=== PATIENT | female | born 1960 | race Caucasian/White ===

== ENCOUNTER → 2023-06-22 10:14 | Outpatient (REF) | payer OTHER, SELFPAY | LOC: HWRAD 10:14 | PROVIDERS: ATTENDING PHYSICIAN Internal Medicine Critical Care Medicine; FAMILY PHYSICIAN Family Medicine | DX: R91.8 Other nonspecific abnormal finding of lung field (principal) | CPT/HCPCS: 71250 ==

== ENCOUNTER → 2023-12-01 09:08 | Outpatient (REF) | payer OTHER, SELFPAY | LOC: HWWDC 09:08 | PROVIDERS: ATTENDING PHYSICIAN Obstetrics & Gynecology; FAMILY PHYSICIAN Family Medicine | DX: Z12.31 Encounter for screening mammogram for malignant neoplasm of breast (principal) | CPT/HCPCS: 77063; 77067 ==

== ENCOUNTER 2023-12-25 00:30 | Emergency (ER) | payer OTHER, SELFPAY ==
[2023-12-25 00:38] VITALS: BP 108/66
[2023-12-25 00:52] LABS: % Basophils 0.3 % (0-2); % Eosinophils 0.6 % (0-6); % Immature Granulocytes 0.4 % (0-0.5); % Lymphocytes 3.2 % (20.5-51.1); % Neutrophils 91.5 % (42.2-75.2); Absolute Eosinophils 0.1 10^3/uL (0-0.7); Absolute Immature Granulocytes 0.1 10^3/uL (0-0.05); Absolute Lymphocytes 0.4 10^3/uL (1.2-3.4); Absolute Monocytes 0.5 10^3/uL (0.1-0.6); Absolute Neutrophils 10.9 10^3/uL (1.4-6.5); Hematocrit 45.1 % (37.0-47.0); Hemoglobin 15.9 g/dL (12.0-16.0); Mean Corp Hgb Conc. 35.3 g/dL (33.0-37.0); Mean Corpuscular Hgb 29.1 pg (27.0-31.0); Mean Corpuscular Volume 82.6 fL (81.0-99.0); Mean Platelet Volume 10.1 fL (7.4-10.4); Nucleated Red Blood Cells % 0 %; Platelet Count 176 10^3/uL (130-400); Red Blood Cell Count 5.46 10^6/uL (4.20-5.40); Red Cell Dist. Width 13.3 % (11.5-14.5)
[2023-12-25 01:24] LABS: ALT (SGPT) 31 U/L (0-35); AST (SGOT) 39 U/L (14-36); Albumin 4.9 g/dl (3.5-5.0); Alkaline Phosphatase 73 U/L (38-126); Blood Urea Nitrogen 27 mg/dl (7-17); Carbon Dioxide 19 mmol/L (22-30); Chloride 108 mmol/L (98-107); Glucose 145 mg/dl (70-99); Potassium 4.6 mmol/L (3.5-5.1); Sodium 139 mmol/L (135-145); Total Bilirubin 0.9 mg/dl (0.2-1.3); Total Protein 7.1 g/dl (6.3-8.2); eGFR > 60.00
[2023-12-25 03:15] VITALS: BMI 23.1
[2023-12-25] MEDS: NSS 1000 IV (03:17)
[2023-12-25 03:20] VITALS: BP 100/54
--- NOTE | 2023-12-25 03:34 | ED.GENMED ---
History of Present Illness
General
Chief Complaint: Abdominal Symptoms
Source: patient
Exam Limitations: none
Time Seen by Provider: 12/25/23 03:22
Nursing documentation reviewed up to this point in time: agreed with
History of Present Illness
History of Present Illness:
Pleasant 63-year-old female who presents with presents with nausea, vomiting, and diarrhea that has been present since early this evening. She and her have identical symptoms. They both ate lunch at a family member's house. They admit to
eating the same thing. She denies any bloody vomiting or diarrhea. Patient has no chest pain or shortness of breath.
Past History
Past History
ED Past Medical History: Cancer (Follicular lymphoma)
ED Past Surgical History:
Social History
Tobacco: Non-smoker
Alcohol: None
Living: with family
Family History
Family History: Early CAD and CAD
Review of Systems
Review of Systems
Allergies reviewed?: Yes
All Other Systems: ROS reviewed and negative except as documented in HPI and ROS
Constitutional: Reports no symptoms
EENT: Reports no symptoms
Respiratory: Reports no symptoms
Cardiac: Reports no symptoms
ABD/GI: Reports abdominal pain, nausea, vomiting and diarrhea; Denies constipated
: Reports no symptoms
Musculoskeletal: Reports no symptoms
Skin: Reports no symptoms
Neurological: Reports no symptoms
Endocrine: Reports no symptoms
Hematologic/Lymphatic: Reports no symptoms
Psychiatric: Reports anxiety
Phy Exam
General Physical Exam
General Presentation: well appearing and no apparent distress
General Skin: warm and dry
General Habitus: normal
General Mental: alert
General Hydration: appears well hydrated
ENT Exam
ENT Exam: EOMI, pharynx normal, neck supple and normocephalic
Eye Exam
Eye Exam: PERRL, cornea clear and conjunctiva normal
Cardiovascular Exam
Cardiovascular Exam: regular rate/rhythm, no edema, no murmur and normal peripheral pulses
Pulmonary Exam
Pulmonary Exam: lungs clear, no respiratory distress, no rales, no crackles, no rhonchi, no stridor, no wheezing and no cough
Gastrointestinal Exam
Gastrointestinal Exam: normal bowel sounds, soft, no organomegaly, no pulsatile mass and non distended
Palpation: generalized: Minimal tenderness
Neurological Exam
Neurological Exam: alert, oriented x3, no motor deficits and speech normal
Musculoskeletal Exam
Musculoskeletal Exam: full ROM and no edema
Skin Exam
Skin Exam: normal color, warm/dry, no rash and no petechia
Psychiatric Exam
Psychiatric Exam: normal mood/affect
Course
Orders/Labs/Results
Orders:
Orders
12/25/23 00:46
CMP [Comprehensive Metabolic Panel] Urgent
Complete Blood Count/With Diff Urgent
12/25/23 03:12
0.9% Sodium Chloride 1000 ml [Nss] 1,000 ml IV BOLUS
12/25/23 03:22
0.9% Sodium Chloride 1000 ml [Nss] 1,000 ml IV BOLUS
Abnormal Lab Results
12/25/23
00:46
WBC 12.0 H 10^3/uL
(4.8-10.8)
RBC 5.46 H 10^6/uL
(4.20-5.40)
Abs Immat Gran (auto) 0.1 H 10^3/uL
(0-0.05)
Absolute Neuts (auto) 10.9 H 10^3/uL
(1.4-6.5)
Absolute Lymphs (auto) 0.4 L 10^3/uL
(1.2-3.4)
Neutrophils % 91.5 H %
(42.2-75.2)
Lymphocytes % 3.2 L %
(20.5-51.1)
Chloride 108 H mmol/L
(98-107)
Carbon Dioxide 19 L mmol/L
(22-30)
BUN 27 H mg/dl
(7-17)
Glucose 145 H mg/dl
(70-99)
AST 39 H U/L
(14-36)
12/25/23 00:46
12/25/23 00:46
Vital Signs
Initial and Last Documented VS:
Initial Vital Signs
Temp Pulse Resp BP Pulse Ox
98.3 F 88 24 108/66 100
12/25/23 00:38 12/25/23 00:38 12/25/23 00:38 12/25/23 00:38 12/25/23 00:38
Last Documented Vital Signs
Temp Pulse Resp BP Pulse Ox
98.3 F 78 18 110/56 99
12/25/23 00:38 12/25/23 04:20 12/25/23 04:20 12/25/23 04:20 12/25/23 04:20
*Critical Care Note
Total Time (30-74mins, 75-104mins- exclusive of procedures): Not Applicable
ED Attending Note
-
Portions of this chart may have been created with voice recognition software.� Occasional wrong word or��sound alike� substitutions may have occurred due to the inherent limitations of voice recognition software.
Discharge Plan
Departure
Patient Disposition: Home (Routine Discharge)
Date of Disposition: 12/25/23
Time of Disposition: 04:12
Patient with high blood pressure during this ER visit?: No
Condition: Fair
Discharge Problem:
Gastroenteritis, Dehydration
Instructions: Clear Liquid Diet, Dehydration, Adult (DC), Nausea and Vomiting, Adult (DC), Abdominal Pain
Prescriptions:
New
ondansetron 4 mg tablet,disintegrating
4 mg PO Q6H PRN (Reason: nausea and vomiting) Qty: 10 0RF
No Action
Digestive Advantage Advanced 1 EACH capsule
1 ea PO DAILY
multivitamin 1 EACH tablet
1 ea PO DAILY
docusate sodium 100 MG capsule
100 mg PO BID 0RF
atorvastatin [Lipitor] 10 mg Tablet
10 mg PO DAILY
acetaminophen 650 mg Tablet Extended Release
1,000 mg PO K24MORE PRN (Reason: mild pain)
albuterol sulfate [ProAir HFA] 90 mcg/actuation Hfa Aerosol Inhaler
2 puff INHALATION R Q6HPRN PRN (Reason: sob)
budesonide-formoterol [Symbicort] 160-4.5 mcg/actuation Hfa Aerosol Inhaler
2 puff INHALATION R BID
Referrals:
Ivone Hoyt DO [Family Provider] -
Activity Restrictions/Additional Instructions:
It was a pleasure meeting you and taking part in your care. We hope for your continued healing and wellness.
Please read discharge instructions in their entirety. However, they are for general education and may not describe your exact diagnosis at discharge. Information on your ER visit and medical conditions were discussed with you along with appropriate
follow up information...
If indicated, please take your medications as instructed and indicated on discharge paperwork.
Please schedule a follow up appointment as directed. Call to schedule an appointment
Please return to the emergency department with ANY change in, persisting, or worsening of symptoms. If any of your symptoms do not improve, or persist, or become more severe within 6-12 hours, please return to the emergency department for further
care.
Please return to the emergency department if you develop a headache, neck pain/stiffness, fever greater than 100.4F, chest pain, shortness of breath, persistent nausea, vomiting, slurred speech, difficulty walking, numbness/tingling, weakness, signs
of infection or any other symptoms that are worrisome to you.
If you have any questions or concerns please do not hesitate to call the Hospital at or E-mail me directly at [email or web address]
Interventions
Interventions:
*Risk Screen - Suicide Last Done: 12/25/23 00:42
*General Assessment Last Done: 12/25/23 03:45
*Neglect/Abuse Screening Last Done: 12/25/23 00:42
ED- Fall Risk Assessment Last Done: 12/25/23 03:24
*ED COVID-19 Vaccine History Last Done: 12/25/23 03:22
*Nursing Disposition Last Done: 12/25/23 04:21
RS-Takuqv-Ptseluzkfu Assessment Last Done: 12/25/23 03:24
Discharge Date and Time
Discharge Date/Time: 12/25/23 04:21
Print Language: VIET[place]ESE
[2023-12-25 04:20] VITALS: BP 110/56
== END 2023-12-25 04:21 | disposition home or self-care (01) ==
LOC: EMR 00:30
PROVIDERS: EMERGENCY PHYSICIAN Student in an Organized Health Care Education/Training Program; FAMILY PHYSICIAN Family Medicine
DX: K52.9 Noninfective gastroenteritis and colitis, unspecified (principal); E86.0 Dehydration; Z82.49 Family history of ischemic heart disease and other diseases of the circulatory system
CPT/HCPCS: 99283; 96360; 80053; 85025

== ENCOUNTER 2025-02-01 08:09 | Outpatient (RCR) | payer OTHER, SELFPAY ==
[2025-02-01 08:20] VITALS: BP 133/74
[2025-02-01] MEDS: TYLENOL 650 MG PO (08:38)
[2025-02-01] MEDS: BENADRYL 50 MG PO (08:38)
[2025-02-01] MEDS: GAMMAGARD 200 IV (08:39)
[2025-02-01 08:40] VITALS: BP 127/84
[2025-02-01 09:00] LABS: Hematocrit 42.9 % (37.0-47.0); Hemoglobin 14.7 g/dL (12.0-16.0); Mean Corp Hgb Conc. 34.3 g/dL (33.0-37.0); Mean Corpuscular Volume 85.1 fL (81.0-99.0); Nucleated Red Blood Cells % 0 %; Platelet Count 159 10^3/uL (130-400); Red Cell Dist. Width 13.1 % (11.5-14.5)
[2025-02-01 09:08] LABS: ALT (SGPT) 30 U/L (0-35); AST (SGOT) 26 U/L (14-36); Albumin 4.4 g/dl (3.5-5.0); Alkaline Phosphatase 64 U/L (38-126); Blood Urea Nitrogen 17 mg/dl (7-17); Calcium 10.0 mg/dl (8.4-10.2); Carbon Dioxide 25 mmol/L (22-30); Chloride 109 mmol/L (98-107); Glucose 93 mg/dl (70-99); Potassium 4.2 mmol/L (3.5-5.1); Sodium 141 mmol/L (135-145); Total Protein 6.4 g/dl (6.3-8.2); eGFR > 60.00
[2025-02-01 09:10] VITALS: BP 132/81
--- NOTE | 2025-02-01 09:14 | PTCARENOTE ---
0900: ivig infusing approximately 10ml infused, pt stating ' is it normal to feel tingling in my abdomen?' Pt also stating she felt tingling in b/l hands. IVIG stopped, saline infusing, and pt stating tingling was subsiding. No other complaints
at present, vss, Ariana CORRECTIONS SPECIALIST to assess, will restart IVIG in 30minutes, will monitor closely.
[2025-02-01 09:40] VITALS: BP 130/84
[2025-02-01 10:10] VITALS: BP 113/75
[2025-02-01 10:40] VITALS: BP 134/88
--- NOTE | 2025-02-01 11:12 | PTCARENOTE ---
0930: pt with no further complaints, ivig restarted after waiting 30minutes, vss, will follow.
--- NOTE | 2025-02-01 11:53 | PTCARENOTE ---
pt tolerated remainder of ivig infusion, vss, no complaints.
== END 2025-02-04 09:18 | disposition home or self-care (01) ==
LOC: OID 08:09
PROVIDERS: ATTENDING PHYSICIAN Internal Medicine; FAMILY PHYSICIAN Family Medicine
DX: D80.1 Nonfamilial hypogammaglobulinemia (principal)
CPT/HCPCS: 80053; 85025; 96365; 96366; J1569

== ENCOUNTER 2025-03-01 08:59 | Outpatient (RCR) | payer OTHER, SELFPAY ==
[2025-03-01 09:29] VITALS: BP 121/68
[2025-03-01] MEDS: TYLENOL 650 MG PO (09:32)
[2025-03-01] MEDS: BENADRYL 50 MG PO (09:33)
[2025-03-01] MEDS: GAMMAGARD 200 IV (10:05)
[2025-03-01 10:09] LABS: Hematocrit 43.6 % (37.0-47.0); Hemoglobin 14.3 g/dL (12.0-16.0); Mean Corp Hgb Conc. 32.8 g/dL (33.0-37.0); Mean Corpuscular Volume 84.7 fL (81.0-99.0); Nucleated Red Blood Cells % 0 %; Platelet Count 155 10^3/uL (130-400); Red Cell Dist. Width 13.2 % (11.5-14.5)
[2025-03-01 10:12] VITALS: BP 120/68
[2025-03-01 10:33] LABS: ALT (SGPT) 31 U/L (0-35); AST (SGOT) 29 U/L (14-36); Albumin 4.1 g/dl (3.5-5.0); Alkaline Phosphatase 64 U/L (38-126); Blood Urea Nitrogen 18 mg/dl (7-17); Calcium 9.5 mg/dl (8.4-10.2); Carbon Dioxide 26 mmol/L (22-30); Chloride 107 mmol/L (98-107); Glucose 106 mg/dl (70-99); Sodium 141 mmol/L (135-145); Total Protein 6.2 g/dl (6.3-8.2); eGFR > 60.00
[2025-03-01 10:38] LABS: Potassium 4.2 mmol/L (3.5-5.1)
[2025-03-01 10:40] VITALS: BP 116/71
[2025-03-01 11:10] VITALS: BP 100/73
[2025-03-01 11:40] VITALS: BP 112/71
[2025-03-01 12:10] VITALS: BP 113/92
== END 2025-03-04 10:47 | disposition home or self-care (01) ==
LOC: OID 08:59
PROVIDERS: ATTENDING PHYSICIAN Internal Medicine; FAMILY PHYSICIAN Family Medicine
DX: D80.1 Nonfamilial hypogammaglobulinemia (principal)
CPT/HCPCS: 36415; 80053; 85025; 96365; 96366; J1569

== ENCOUNTER → 2025-03-04 08:22 | Outpatient (REF) | payer OTHER, SELFPAY | LOC: WDC 08:22 | PROVIDERS: ATTENDING PHYSICIAN Obstetrics & Gynecology; FAMILY PHYSICIAN Family Medicine | DX: Z12.31 Encounter for screening mammogram for malignant neoplasm of breast (principal) | CPT/HCPCS: 77063; 77067 ==

== ENCOUNTER 2025-03-29 09:09 | Outpatient (RCR) | payer OTHER, SELFPAY ==
[2025-03-29] MEDS: BENADRYL 50 MG PO (09:27)
[2025-03-29] MEDS: TYLENOL 650 MG PO (09:28)
[2025-03-29] MEDS: NSS 500 IV (09:44)
--- NOTE | 2025-03-29 09:44 | PTCARENOTE ---
Patient here today for IVIG in OID. Reports nausea after last treatment. Currently taking augmentin for sinus infection. Benadryl and Tylenol given for premeds. Will plan to add 500 mL NS with infusion today to see if helps with nausea. Will
reassess before next treatment and throughout treatment today. Patient informed of the plan and ok with proceeding. No history of cardiac dysfunction or renal dysfunction. Not on fluid restriction.
[2025-03-29 09:51] VITALS: BP 122/77
[2025-03-29 09:56] VITALS: BP 133/81
[2025-03-29] MEDS: GAMMAGARD 200 IV (09:56)
[2025-03-29 10:05] LABS: Hematocrit 41.7 % (37.0-47.0); Hemoglobin 14.0 g/dL (12.0-16.0); Mean Corp Hgb Conc. 33.6 g/dL (33.0-37.0); Mean Corpuscular Volume 84.6 fL (81.0-99.0); Nucleated Red Blood Cells % 0 %; Platelet Count 180 10^3/uL (130-400); Red Cell Dist. Width 13.4 % (11.5-14.5)
[2025-03-29 10:11] VITALS: BP 120/76
[2025-03-29 10:19] LABS: ALT (SGPT) 27 U/L (0-35); AST (SGOT) 26 U/L (14-36); Albumin 4.4 g/dl (3.5-5.0); Alkaline Phosphatase 67 U/L (38-126); Blood Urea Nitrogen 15 mg/dl (7-17); Calcium 9.6 mg/dl (8.4-10.2); Carbon Dioxide 27 mmol/L (22-30); Chloride 107 mmol/L (98-107); Glucose 89 mg/dl (70-99); Potassium 3.9 mmol/L (3.5-5.1); Sodium 138 mmol/L (135-145); Total Protein 6.8 g/dl (6.3-8.2); eGFR > 60.00
[2025-03-29 10:41] VITALS: BP 130/76
[2025-03-29 11:11] VITALS: BP 125/74
--- NOTE | 2025-03-29 11:42 | PTCARENOTE ---
Addendum entered by Carmela Espinoza RN 03/29/25 14:29:
Call placed to Dr. Castro office spoke with Davy SIM Updated treatment intervention to add additional IV fluids of 500ml NSS today with treatment to potentially eliminate post infusion nausea and fatigue. Dr Castro is in agreement and will fax
orders to add fluids with each subsequent infusions.
Original Note:
0930- Upon assessment Pt noted nausea ad fatigue post infusions. Discussed with Ariana Escalera WATER TREATMENT OPERATOR will add additional IV hydration 500ml NSS to infusion.
[2025-03-29 12:00] VITALS: BP 126/83
== END 2025-04-01 08:05 | disposition home or self-care (01) ==
LOC: OID 09:09
PROVIDERS: ATTENDING PHYSICIAN Internal Medicine; FAMILY PHYSICIAN Family Medicine
DX: D80.1 Nonfamilial hypogammaglobulinemia (principal)
CPT/HCPCS: 36415; 80053; 82784; 82787; 85025; 96361; 96365; 96366; J1569

== ENCOUNTER → 2025-04-17 12:38 | Outpatient (REF) | payer OTHER, SELFPAY | LOC: WDC 12:38 | PROVIDERS: ATTENDING PHYSICIAN Obstetrics & Gynecology; FAMILY PHYSICIAN Family Medicine | DX: R92.333 Mammographic heterogeneous density, bilateral breasts (principal) | CPT/HCPCS: 76641 ==

== ENCOUNTER 2025-04-26 09:08 | Outpatient (RCR) | payer OTHER, SELFPAY ==
[2025-04-26 09:15] VITALS: BP 134/82
[2025-04-26] MEDS: NSS 500 IV (09:53)
[2025-04-26] MEDS: GAMMAGARD 200 IV (09:54)
[2025-04-26 10:00] VITALS: BP 127/76
[2025-04-26 10:10] LABS: Hematocrit 43.6 % (37.0-47.0); Hemoglobin 14.3 g/dL (12.0-16.0); Mean Corp Hgb Conc. 32.8 g/dL (33.0-37.0); Mean Corpuscular Volume 87.0 fL (81.0-99.0); Nucleated Red Blood Cells % 0 %; Platelet Count 160 10^3/uL (130-400); Red Cell Dist. Width 13.9 % (11.5-14.5)
[2025-04-26 10:19] LABS: ALT (SGPT) 22 U/L (0-35); AST (SGOT) 24 U/L (14-36); Albumin 4.1 g/dl (3.5-5.0); Alkaline Phosphatase 69 U/L (38-126); Blood Urea Nitrogen 19 mg/dl (7-17); Calcium 9.3 mg/dl (8.4-10.2); Carbon Dioxide 25 mmol/L (22-30); Chloride 104 mmol/L (98-107); Glucose 84 mg/dl (70-99); Potassium 4.1 mmol/L (3.5-5.1); Sodium 137 mmol/L (135-145); Total Protein 6.4 g/dl (6.3-8.2); eGFR > 60.00
[2025-04-26 10:30] VITALS: BP 118/78
[2025-04-26 11:00] VITALS: BP 124/79
[2025-04-26 11:30] VITALS: BP 121/81
[2025-04-26 12:00] VITALS: BP 122/80
== END 2025-04-29 09:00 | disposition home or self-care (01) ==
LOC: OID 09:08
PROVIDERS: ATTENDING PHYSICIAN Internal Medicine; FAMILY PHYSICIAN Family Medicine
DX: D80.1 Nonfamilial hypogammaglobulinemia (principal)
CPT/HCPCS: 80053; 82784; 82787; 85025; 96361; 96365; 96366; J1569